=== PATIENT | male | born 1945 | race Caucasian/White ===

== ENCOUNTER 2017-07-17 14:47 | Emergency (ER) | payer OTHER ==
[~2017-07-17] VITALS: Ht 190.5 cm; Wt 96.2 kg
[~2017-07-17 14:47] MED LIST: HYDR12.5; KLO.5 PO; LOSA100T15
[2017-07-17 14:57] VITALS: BP_SYST 139
[2017-07-17] MEDS ORDERED: KETOROLAC TROMETHAMINE 30 MG VIAL ONE (15:12)
[2017-07-17] MEDS ORDERED: KETOROLAC TROMETHAMINE 30 MG VIAL IVP ONE (15:15)
[2017-07-17] MEDS ORDERED: HYDROmorphone 1 MG INJ. 1 MG/ML AMPUL IVP ONE (15:15)
[2017-07-17] MEDS ORDERED: DIPHENHYDRAMINE INJ 50 MG/ML VIAL IVP ONE (15:15)
[2017-07-17 16:00] VITALS: BP_SYST 162
== END 2017-07-17 16:00 | disposition home or self-care (01) ==
LOC: SED 14:47
DX: N20.0 Calculus of kidney (principal); I10 Essential (primary) hypertension; Z88.0 Allergy status to penicillin; Z88.8 Allergy status to other drugs, medicaments and biological substances; Z86.79 Personal history of other diseases of the circulatory system
CPT/HCPCS: 74000; 96374; 96375; 99284; J1170; J1200; J1885

== ENCOUNTER 2019-05-13 18:55 | Inpatient (IN) | payer OTHER ==
[~2019-05-13] VITALS: Ht 190.5 cm; Wt 90.7 kg
[2019-05-13 09:45] VITALS: BP_SYST 149
[~2019-05-13 18:55] MED LIST changes: -LOSA100T15; +LOSA100T23
[2019-05-13 19:00] VITALS: BP_SYST 141
--- NOTE | 2019-05-13 19:02 | NUR ---
Placed in room 01 . Placed on fiber optics technician, blood pressure machine and pulse oximeter. To gown for exam. Side rails up.
--- NOTE | 2019-05-13 19:02 | NUR ---
Patient AOx4 with c/o upper abd pain x 20 minutes 06/09. patient states he started having pain and has an rx for tylenol #3 that was filled after his appointment this morning for a biopsy above the left eyebrow. patient states he was seen at [facility] on for similar pain. patient has slow to normal active bowelsounds. patient denies constipation. patient coughing, moving abd up and down, side to side. patient states he has sharp pain that does not radiate anyway. patient denies SOB, lightheadedness or otherwise. patient is able to stand, sit without apparance of distress. patient has a stable gait. no other complaint or injury at this time.
--- NOTE | 2019-05-13 19:02 | NUR ---
ASHA Ruelas at bedside examining patient.
--- NOTE | 2019-05-13 19:05 | NUR ---
# 18 gauge angiocath placed to LAC. Use of asceptic technique. Opsite placed over site. Blood return noted. Blood for lab drawn from site. Flushed with 10 cc of normal saline. No evidence of infiltration noted. Patient tolerated well.
--- NOTE | 2019-05-13 19:05 | NUR ---
EKG was paused per MD request for CT STAT. MD requested Morphine 4mg plus morphine 4mg override STAT. CT at bedside.
[2019-05-13] MEDS ORDERED: MORPHINE 4 MG/ML INJ. SYRINGE IVP ONE ×2 (19:15→19:30)
[2019-05-13] MEDS ORDERED: NACL 0.9% 1,000 ML IV ONE (19:15)
[2019-05-13] MEDS ORDERED: ONDANSETRON HCL 4 MG/2 ML VIAL IVP ONE (19:15)
[2019-05-13] MEDS ORDERED: MORPHINE 4 MG/ML INJ. SYRINGE ONE (19:32)
[2019-05-13 19:39] LABS: BASOPHILS % (AUTO) 0.6 % (0.0-2.0); EOSINOPHILS # (AUTO) 0.1 K/uL (0.0-0.4); HEMATOCRIT 49.7 % (36-54); HEMOGLOBIN 16.7 g/dL (14.0-18.0); LYMPHOCYTES # (AUTO) 1.5 K/uL (1.0-5.5); LYMPHOCYTES % (AUTO) 25.5 % (20.5-51.5); MEAN CORPUSCULAR HEMOGLOBIN 30 pg (27-31); MEAN CORPUSCULAR HGB CONC 34 % (32-36); MEAN CORPUSCULAR VOLUME 90 fL (79.0-98.0); MONOCYTES # (AUTO) 0.6 K/uL (0.0-1.0); MONOCYTES % (AUTO) 10.2 % (1.7-9.3); NEUTROPHILS # (AUTO) 3.6 K/uL (1.8-7.7); NEUTROPHILS % (AUTO) 61.7 % (40.0-70.0); PLATELET COUNT (AUTO) 200 K/uL (130-430); RED BLOOD CELL COUNT(AUTO) 5.52 MIL/uL (4.2-6.2); RED CELL DISTRIBUTION WIDTH 13.2 % (9.0-15.0); WHITE BLOOD COUNT (AUTO) 5.8 K/uL (4.8-10.8)
[2019-05-13 19:46] LABS: ANION GAP 5 (5-15); CALCIUM 8.7 mg/dL (8.4-11.0); CHLORIDE 103 mmol/L (98-107); CREATININE 0.89 mg/dL (0.55-1.30); GLUCOSE 105 mg/dL (70-99); POTASSIUM 3.6 mmol/L (3.5-5.1); SODIUM SERUM 137 mmol/L (136-145); UREA NITROGEN, BLOOD 18 mg/dL (8-21)
[2019-05-13 19:50] LABS: ALANINE AMINOTRANSFERASE 24 U/L (12-78); ALBUMIN 3.3 g/dL (3.4-4.8); ASPARTATE AMINOTRANSFERASE 27 U/L (10-37); LIPASE 106 U/L (73-393); TOTAL BILIRUBIN 0.6 mg/dL (0.0-1.0)
--- NOTE | 2019-05-13 20:22 | NUR ---
patients stated "the pain came back." patient began moaning, thrusting hips and adjusting legs due to discomfort without relief, 9 pain that is sharp and nonradiating. MD notified, orders recieved.
[2019-05-13] MEDS ORDERED: MAG HYDROX/AL HYDROX/SIMETH 30 ML, DICYCLOMINE HCL 20 MG, LIDOCAINE VISCOUS 2% 15ML (PO... PO ONE ×3 (20:30)
--- NOTE | 2019-05-13 21:07 | NUR ---
Medication reconciliation completed with information provided by family member. Any prior medication reconciliation on file was reviewed and corrected.
[2019-05-13] MEDS ORDERED: ONDANSETRON HCL 4 MG/2 ML VIAL IVP PRN (21:15)
[2019-05-13] MEDS ORDERED: MORPHINE 2 MG/ML INJ. SYRINGE IVP PRN (21:15)
[2019-05-13] MEDS ORDERED: 0.45% NACL 1,000 ML IV SCH (21:15)
[2019-05-13] MEDS ORDERED: ACETAMINOPHEN 325 MG TABLET PO PRN (21:15)
[2019-05-13 21:43] LABS: BILIRUBIN,URINE NEGATIVE (NEGATIVE); CLARITY/URINE CLEAR (CLEAR); COLOR,URINE YELLOW (YELLOW); GLUCOSE,URINE NEGATIVE (NEGATIVE); KETONES,URINE NEGATIVE (NEGATIVE); LEUKOCYTE ESTERASE ,URINE NEGATIVE (NEGATIVE); NITRITE, URINE NEGATIVE (NEGATIVE); PROTEIN URINE NEGATIVE (NEGATIVE)
[2019-05-13 21:45] VITALS: BP_SYST 149
--- NOTE | 2019-05-13 21:50 | NUR ---
Patient will be admitted to care of David. Admitted to Tele unit. Will go to room 135. Belongings list completed. Summary report printed. Report will be given at bedside.
[2019-05-13 21:53] LABS: BLOOD, URINE TRACE (NEGATIVE)
[2019-05-13 21:54] LABS: BACTERIA,URINE FEW /HPF (None Seen); MUCUS,URINE 1+ /LPF (None Seen); RBC,URINE NONE SEEN /HPF (0-3); WBC,URINE 0-3 /HPF (0-3)
--- NOTE | 2019-05-13 22:24 | NUR ---
paged paged for Dr Hernandez, dialed . s/w Ana M.
--- NOTE | 2019-05-13 22:26 | NUR ---
dr. porter call back- ask md for pain medication dilaudid per pt and family request. explain also that pt has total of 8mg morphine at e.r. without relief. md don't want to prescribed dilaudid. md order to increase morphine 2mg to 4mg q4hr for severe pain.
[2019-05-13] MEDS ORDERED: MORPHINE 4 MG/ML INJ. SYRINGE IVP PRN (22:45)
--- NOTE | 2019-05-13 23:49 | NUR ---
PAGED PAGED DOCTOR JONES FOR ORDERS
--- NOTE | 2019-05-14 00:21 | NUR ---
CONSULTATION PAGED/CALLED Reason for Consultation: ABD PAIN Person Who was Notified: BOZENA Consulting Physician: JANIS Fire Sprinkler Designer Specialty: GI Ordering Physician: KAREN
--- NOTE | 2019-05-14 01:36 | NUR ---
paged second page for Dr Hernandez, dialed . s/w Ubaldo.
--- NOTE | 2019-05-14 01:57 | NUR ---
paged third page for Dr Hernandez, dialed . s/w Farideh.
--- NOTE | 2019-05-14 02:05 | NUR ---
Dr. Hernandez called back: Dr. Hernandez called back and inform Him that patient stated he cannot sleep without getting his Klonopin. Got new order and Primary RN made aware.
[2019-05-14] MEDS ORDERED: clonazePAM 0.5 MG TABLET PO SCH ×3 (02:20→21:00)
--- NOTE | 2019-05-14 05:03 | NUR ---
PT REMAIN CALM IN BED,SAID UNABLE TO SLEEP,WITHOUT KLONOPIN DOSE, CALLED AND ORDERED0.5MG KLONOPIN, SAME ADMINSTERED WITH GOOD EFFECT,PT RESTING ASLEEP AT THIS TIME, DUE IVPBG ABX ADMINSTERED, WILL CONTINUE TO MONITOR
[2019-05-14 06:00] LABS: BASOPHILS % (AUTO) 0.4 % (0.0-2.0); EOSINOPHILS # (AUTO) 0.1 K/uL (0.0-0.4); EOSINOPHILS % (AUTO) 1.2 % (0.0-4.0); HEMATOCRIT 42.2 % (36-54); HEMOGLOBIN 14.3 g/dL (14.0-18.0); LYMPHOCYTES # (AUTO) 1.2 K/uL (1.0-5.5); LYMPHOCYTES % (AUTO) 18.7 % (20.5-51.5); MEAN CORPUSCULAR HEMOGLOBIN 31 pg (27-31); MEAN CORPUSCULAR HGB CONC 34 % (32-36); MEAN CORPUSCULAR VOLUME 90 fL (79.0-98.0); MONOCYTES # (AUTO) 0.6 K/uL (0.0-1.0); MONOCYTES % (AUTO) 8.5 % (1.7-9.3); NEUTROPHILS # (AUTO) 4.7 K/uL (1.8-7.7); NEUTROPHILS % (AUTO) 71.2 % (40.0-70.0); PLATELET COUNT (AUTO) 165 K/uL (130-430); RED BLOOD CELL COUNT(AUTO) 4.68 MIL/uL (4.2-6.2); RED CELL DISTRIBUTION WIDTH 13.2 % (9.0-15.0); WHITE BLOOD COUNT (AUTO) 6.6 K/uL (4.8-10.8)
[2019-05-14 06:18] LABS: ALANINE AMINOTRANSFERASE 73 U/L (12-78); ALBUMIN 2.6 g/dL (3.4-4.8); ANION GAP 3 (5-15); ASPARTATE AMINOTRANSFERASE 66 U/L (10-37); CALCIUM 7.6 mg/dL (8.4-11.0); CHLORIDE 108 mmol/L (98-107); CREATININE 0.87 mg/dL (0.55-1.30); GLUCOSE 99 mg/dL (70-99); POTASSIUM 4.1 mmol/L (3.5-5.1); SODIUM SERUM 140 mmol/L (136-145); TOTAL BILIRUBIN 0.5 mg/dL (0.0-1.0); UREA NITROGEN, BLOOD 15 mg/dL (8-21)
--- NOTE | 2019-05-14 07:40 | NUR ---
MD Finch-Dr. Pierre at bedside. Addendum: 05/14/19 at 0818 by Rochelle Benitez RN New orders given.
[2019-05-14 08:00] VITALS: BP_SYST 130
--- NOTE | 2019-05-14 08:00 | NUR ---
Initial Note-Pt awake, alert and oriented. Denies any n/v/d. Pain controlled at this time. Updated on plan of care. Safety precautions in place, bed in low position, call light within reach and encourage pt to use for assistance.
[2019-05-14] MEDS ORDERED: PANTOPRAZOLE SODIUM 40 MG/VIAL (PROTONIX) IVP SCH (09:00)
[2019-05-14 10:10] VITALS: BP_SYST 130
--- NOTE | 2019-05-14 10:30 | NUR ---
DISCHARGE NOTE-Pt discharged home, accompanied by family member. Ambulates with steady gait. Denies any pain, n/v/d. Left IV taken out, catheter intact, arm band removed. All belongings with pt. Discharge instructions and prescriptions with pt. Pt verbalized understanding.
[2019-05-14] MEDS ORDERED: LOSARTAN POTASSIUM 50 MG TABLET (COZAAR) PO SCH (21:00)
[2019-05-15] MEDS ORDERED: HYDROCHLOROTHIAZIDE 12.5 MG CAPSULE (HCTZ) PO SCH (09:00)
--- NOTE | 2019-05-19 12:10 | NUR ---
DISCHARGE FOLLOW UP PHONE CALL JANET/ JENNIFFER REDD PHONED PATIENT, . PATIENT STATED HE IS FEELING A LOT BETTER. HE UNDERSTOOD HIS DISCHARGE INSTRUCTIONS. HE HAS FILLED HIS PRESCRIPTION FOR ULTRAM FOR PAIN. HE HAD HIS FOLLOW UP APPOINTMENT WITH HIS PCP ON Thursday05/16/19. HE HAS NO QUESTIONS OR CONCERNS. HE WILL CALL THE HOSPITAL IF HE HAS ANY QUESTIONS IN THE FUTURE.
== END 2019-05-14 10:30 | disposition home or self-care (01) | DRG 445 ==
LOC: SED 18:55 → STU 21:15
PROVIDERS: ADMIT Internal Medicine; ATTEND Internal Medicine
DX: K80.80 Other cholelithiasis without obstruction (principal); E44.0 Moderate protein-calorie malnutrition; F41.9 Anxiety disorder, unspecified; I10 Essential (primary) hypertension; I71.4 Abdominal aortic aneurysm, without rupture; Z88.0 Allergy status to penicillin; Z88.8 Allergy status to other drugs, medicaments and biological substances; Z79.899 Other long term (current) drug therapy; Z87.442 Personal history of urinary calculi
CPT/HCPCS: 36415; 76700-TC; 80053; 81000-TC; 83690-TC; 85025; 93005; 96361; 96374; 96375; 99285; C9113; G0378; J2001; J2270; J2405